=== PATIENT | male | born 1975 | race Caucasian/White ===

== ENCOUNTER 2016-10-10 08:38 | Emergency (ER) | payer OTHER ==
[2016-10-10 08:47] VITALS: BP 150/90; PULSE 87; RESP 16; TEMP 97.5; O2SAT 94
--- NOTE | 2016-10-10 09:41 | UCPHY ---
H & P Patient Type: New Chief Complaint Nursing Narrative: C/o sore throat x 2 weeks with occasional nonproductive cough. Denies fever. Time Seen by Provider: 10/10/16 09:16 HPI/ROS: Chief complaint: Sore throat HPI: Patient presenting with 2 weeks of sore throat. He has had a rare dry cough. No nasal congestion. No fevers or chills. Some mild pain with swallowing. Has not had any throat clearing. Has not been taking any medications. He has been exposed to strep throat in the past. Otherwise is without complaint. ROS: 10 point Review of Systems is negative except as noted in the HPI. Physical exam: Gen: Awake, Alert, No Distress HEENT: Ears: Bilateral TMs are normal, no erythema or bulging. External auditory canals are clear. Nose: no rhinorrhea Eyes: PERRLA, EOMI Mouth: Moist mucosa mild pharyngeal erythema without exudate or edema Neck: Supple, no JVD Chest: nontender, lungs clear to auscultation Heart: S1, S2 normal, no murmur Abd: Soft, non-tender, no guarding Back: no CVA tenderness, no midline tenderness Ext: no edema, non-tender Skin: no rash Neuro: CN II-XII intact, Sensation grossly intact, Strength 5/5 in bilateral upper and lower extremities - Personal History Current Tetanus/Diphtheria Vaccine: Unsure Current Tetanus Diphtheria and Acellular Pertussis (TDAP): Unsure - Medical/Surgical History Hx Asthma: No Hx Chronic Respiratory Disease: No Hx Diabetes: No Hx Cardiac Disease: No Hx Renal Disease: No Hx Cirrhosis: No Hx Alcoholism: No Hx HIV/AIDS: No Hx Splenectomy or Spleen Trauma: No Other PMH: Denies - Family History Significant Family History: No pertinent family hx - Social History Smoking Status: Never smoked Constitutional: Initial Vital Signs Temperature (C) 36.4 C 10/10/16 08:45 Heart Rate 87 10/10/16 08:45 Respiratory Rate 16 10/10/16 08:45 Blood Pressure 150/90 H 10/10/16 08:45 O2 Sat (%) 94 10/10/16 08:45 O2 Delivery Mode Room Air Allergies/Adverse Reactions: No Known Allergies Allergy (Verified 10/10/16 08:47) Home Medications: Medication Instructions Recorded NO HOME MEDS 01/01/11 Medical Decision Making - Data Points Laboratory Results: 10/10/16 10/10/16 Unknown 09:20 Group A Strep Screen NEGATIVE (NEGATIVE) Group A Strep DNA Pending Departure - Departure Disposition: Home, Routine, Self-Care Clinical Impression: Viral upper respiratory tract infection Condition: Good Instructions: Viral Syndrome (ED) Additional Instructions: Your rapid strep test was negative today. This will be confirmed with a follow- up test in the next 48 hours. We will call you if those results are positive. He may alternate acetaminophen and ibuprofen as needed for fevers, chills, aches , or pains. Follow up with primary care physician in 2-4 days if symptoms are not improving. Referrals: Jono Nath [Primary Care Provider] - As per Instructions - PQRS PQRS Measurement: NA
== END 2016-10-10 09:53 | disposition home or self-care (01) ==
LOC: CED 08:38
DX: B34.9 Viral infection, unspecified (principal)
CPT/HCPCS: 87880-PO; 99204-PO; G0463-PO